=== PATIENT | female | born 1960 | race Caucasian/White ===

== ENCOUNTER → 2018-02-07 | Outpatient (CLI) | payer OTHER | LOC: M.RAD 11:43 | DX: M25.551 Pain in right hip (principal); M20.11 Hallux valgus (acquired), right foot; Z98.890 Other specified postprocedural states ==

== ENCOUNTER 2020-02-12 14:50 | Emergency (ER) | payer OTHER ==
[~2020-02-12] VITALS: Ht 160 cm; Wt 83.9 kg
[2020-02-12] MEDS ORDERED: LISINOPRIL2.5 MG PO (15:09)
[2020-02-12] MEDS ORDERED: HYDROCHLOROTHIA25 M2 PO (15:10)
[2020-02-12] MEDS ORDERED: BUSPIRONE HCL7.5 MG PO (15:10)
[2020-02-12 15:57] LABS: ABSOLUTE EOSINOPHILS 0.2 thou/uL (0.0-0.7); ABSOLUTE LYMPHOCYTES 2.6 thou/uL (0.8-5.3); ABSOLUTE MONOCYTES 0.9 thou/uL (0.0-1.2); ABSOLUTE NEUTROPHILS 6.5 thou/uL (1.6-8.1); BASOPHILS 0.4 %; EOSINOPHILS 2.1 %; HEMOGLOBIN 14.2 gm/dL (12.0-15.0); LYMPHOCYTES 25.3 %; MCHC 34.7 g/dL (28.0-37.0); MCV 89.3 fL (80.0-100.0); MPV 8.8 fl. (7.2-11.1); NUCLEATED RBCS 0 /100WBC; PLATELET COUNT* 327 thou/uL (150-400); POLYS 63.2 %; RBC 4.59 mil/uL (4.20-5.00); RDW-CV 12.5 % (10.5-14.5); WBC 10.2 thou/uL (4.0-11.0)
[2020-02-12 16:06] LABS: CALCIUM 8.7 mg/dL (8.5-10.1); CREATININE 0.8 mg/dL (0.6-1.3); POTASSIUM 3.1 mmol/L (3.5-5.1)
[2020-02-12 16:17] LABS: TOTAL BILIRUBIN 0.3 mg/dL (<0.1-1.0); TOTAL PROTEIN 7.3 g/dL (6.4-8.2)
[2020-02-12] MEDS ORDERED: ZPAK PO (17:43)
[2020-02-12] MEDS ORDERED: VENTOLIN HFA 1818 GM INH (17:44)
[2020-02-12 18:03] VITALS: BP 127/66
--- NOTE | 2020-02-13 14:31 | EKG ---
[place] [address] ELECTROCARDIOGRAM REPORT Name: TRACEE LUCAS Room: [facility]#: [id number] Admission: 02/12/20 Attend Phys: Discharge: 02/12/20 Date of : 56 Date of Service: 02/12/20 1458 Report #: [id number] THIS REPORT FOR: //name// [facility] ED Test Date: 2020-02-12 Test Time: 14:58:58 Pat Name: TRACEE LUCSA Department: Room: Gender: F Territory Sales Representative: : 1960 Requested By: Eduard Kennedy Order Number: [id number] MD: Rojas Biswas Measurements Intervals Lyons Rate: 91 P: 29 MD: 173 QRS: 12 QRSD: 90 T: 6 QT: 361 QTc: 445 Interpretive Statements Sinus rhythm Atrial premature complex Low voltage, precordial leads Baseline wander in lead(s) V3,V4 No previous ECG available for comparison Electronically Signed On 02-13-2020 14:31:15 CDT by Rojas Biswas [email or web address] <ELECTRONICALLY SIGNED> By: Rojas Biswas MD, FACC 02/13/20 1431 1458 1458 Rojas Biswas MD, [facility] /EPI
== END 2020-02-12 18:04 | disposition home or self-care (01) ==
LOC: M.ERS 14:50
PROVIDERS: Nurse Practitioner Family
DX: J18.8 Other pneumonia, unspecified organism (principal); Z20.828 Contact with and (suspected) exposure to other viral communicable diseases; Z88.0 Allergy status to penicillin

== ENCOUNTER 2020-02-20 11:00 | Emergency (ER) | payer OTHER ==
[~2020-02-20] VITALS: Ht 160 cm; Wt 83.9 kg
[~2020-02-20 11:00] MED LIST: BUSPIRONE HCL7.5 MG PO; HYDROCHLOROTHIA25 M2 PO; LISINOPRIL2.5 MG PO; VENTOLIN HFA 1818 GM INH; ZPAK PO
[2020-02-20] MEDS ORDERED: AZITHROMYCIN 2250 MG PO (14:44)
[2020-02-20] MEDS ORDERED: MEDROLDOSEPACK PO (14:44)
[2020-02-20] MEDS ORDERED: PROAIR HFA8.5 GM INH (14:46)
[2020-02-20 14:53] VITALS: BP 123/49
== END 2020-02-20 14:53 | disposition home or self-care (01) ==
LOC: M.ERS 11:00
DX: J40 Bronchitis, not specified as acute or chronic (principal); Z20.828 Contact with and (suspected) exposure to other viral communicable diseases; I10 Essential (primary) hypertension; Z88.0 Allergy status to penicillin

== ENCOUNTER 2020-02-28 16:53 | Emergency (ER) | payer OTHER ==
[~2020-02-28] VITALS: Ht 160 cm; Wt 83.0 kg
[~2020-02-28 16:53] MED LIST changes: +AZITHROMYCIN 2250 MG PO; +MEDROLDOSEPACK PO; +PROAIR HFA8.5 GM INH
[2020-02-28 17:39] LABS: ABSOLUTE BASOPHILS 0.1 thou/uL (0.0-0.2); ABSOLUTE EOSINOPHILS 0.2 thou/uL (0.0-0.7); ABSOLUTE LYMPHOCYTES 2.8 thou/uL (0.8-5.3); ABSOLUTE MONOCYTES 0.9 thou/uL (0.0-1.2); ABSOLUTE NEUTROPHILS 6.4 thou/uL (1.6-8.1); BASOPHILS 0.7 %; EOSINOPHILS 2.2 %; HEMATOCRIT 42.2 % (37.0-47.0); LYMPHOCYTES 26.8 %; MCH 31.6 pg (26.0-34.0); MCHC 35.6 g/dL (28.0-37.0); MCV 88.8 fL (80.0-100.0); MONOCYTES 8.8 %; MPV 7.8 fl. (7.2-11.1); NUCLEATED RBCS 0 /100WBC; PLATELET COUNT* 318 thou/uL (150-400); POLYS 61.5 %; RBC 4.75 mil/uL (4.20-5.00); RDW-CV 12.4 % (10.5-14.5); WBC 10.4 thou/uL (4.0-11.0)
[2020-02-28 17:54] LABS: CALCIUM 8.4 mg/dL (8.5-10.1); CREATININE 0.9 mg/dL (0.6-1.3); POTASSIUM 3.2 mmol/L (3.5-5.1)
[2020-02-28 17:59] LABS: ALBUMIN 3.7 g/dL (3.4-5.0); MAGNESIUM 1.9 mg/dL (1.8-2.4); TOTAL BILIRUBIN 0.3 mg/dL (<0.1-1.0); TOTAL PROTEIN 7.2 g/dL (6.4-8.2)
[2020-02-28] MEDS ORDERED: PREDNISONE 10 M10 MG PO (19:49)
[2020-02-28] MEDS ORDERED: DOXYCYCLINE 10100 M2 PO (19:49)
[2020-02-28 20:16] VITALS: BP 139/77
== END 2020-02-28 20:17 | disposition home or self-care (01) ==
LOC: M.ERS 16:53
PROVIDERS: Physician Assistant
DX: J18.9 Pneumonia, unspecified organism (principal); E87.6 Hypokalemia; I10 Essential (primary) hypertension; Z88.0 Allergy status to penicillin

== ENCOUNTER → 2020-04-28 | Outpatient (CLI) | payer OTHER ==
[~2020-04-28] MED LIST changes: +DOXYCYCLINE 10100 M2 PO; +PREDNISONE 10 M10 MG PO
--- NOTE | 2020-04-28 14:51 | EXE ---
[place] [address] STRESS ECHOCARDIOGRAM Name: LANCETRACEE Ash Room: [facility]#: [id number] Admission: 04/28/20 Attend Phys: Courtney Leal DO Discharge: Date of : 56 Date of Service: 04/28/20 1451 Report #: [id number] THIS REPORT FOR: cc: Courtney Leal Maggie M. DO Liston, Michael J. MD [facility] ~ APPROVED REPORT Study performed: 04/28/2020 13:23:54 Exam: Stress Echocardiogram Indication: Chest pain Patient Location: Out-Patient Stress Nurse: Ramona Gonzalez RN Supervising Physician: Rojas Biswas MD Ht: 5 ft 2 in HR: 80 bpm BP: 127/76 mmHg Medical History Cardiac Risk Factors: Age,, HTN,, Tobacco History (Former), FHX of CAD Procedure The patient underwent an Exercise Stress Test using the Antonio Protocol. Blood pressure, heart rate, and EKG were monitored. An Echocardiogram was performed by emissions testing technician in four stages in quad fashion. At peak stress, four selected images were obtained and placed side by side with resting images for comparison. Stress Test Details Stress Test: Exercise stress testing was performed using a Antonio protocol. HR Resting HR: 80 bpm Max Heart Rate (APMHR): 159 bpm Max HR Achieved: 150 bpm Target HR (85% APMHR): 135 bpm % of APMHR: 94 Recovery HR: 105 bpm HR response to stress: Normal HR response to stress BP Resting BP: 127/76 mmHg Max BP: 201/90 mmHg Recovery BP: 144/85 [place] [address] STRESS ECHOCARDIOGRAM Name: TRACEE LUCAS Room: [facility]#: [id number] Admission: 04/28/20 Attend Phys: Courtney Leal DO Discharge: Date of : 56 Date of Service: 04/28/20 1451 Report #: [id number] BP response to stress: Normal blood pressure response to stress. ECG Resting ECG: Sinus Rhythm Stress ECG: Sinus Tachycardia ST Change: None Arrhythmia: None Recovery ECG: Sinus Rhythm Recovery ST Change: None Recovery Arrhythmia: None Clinical Reason for Termination: Completed protocol Exercise duration: 6 min sec Highest Stage Achieved: Stage 2: 2.5 mph at 12% grade. Exercise capacity: 7.05 METs The patient tolerated standard Antonio protocol exercise without significant cardiac symptoms. Stress ECG Conclusion The baseline twelve-lead EKG shows sinus rhythm without significant ST segment or T wave abnormality. EKGs obtained during and post exercise show sinus rhythm and sinus tachycardia with no significant ST segment or T wave changes when compared to baseline. Pre-Stress Echo The resting Echocardiogram showed normal left ventricular contractility with an estimated Ejection Fraction of about 55-60%. The resting echocardiogram demonstrated normal wall motion in all wall segments. Post-Stress Echo The stress Echocardiogram showed normal left ventricular contractility with an estimated Ejection Fraction of about >70%. Conclusion Clinical Response: Non-ischemic Exercise Capacity: Average Stress ECG Response: Non-ischemic Stress Echo Images: [place] [address] STRESS ECHOCARDIOGRAM Name: TRACEE LUCAS Room: [facility]#: [id number] Admission: 04/28/20 Attend Phys: Courtney Leal DO Discharge: Date of : 56 Date of Service: 04/28/201450 Report #: [id number] Other Information Study Quality: Fair <ELECTRONICALLY SIGNED> By: Rojas Biswas MD, FACC 04/28/201450 50 50 Rojas Biswas MD, FACC /INF
== END ==
LOC: M.CRD 12:38
PROVIDERS: ATTEND Family Medicine
DX: I10 Essential (primary) hypertension (principal); R06.02 Shortness of breath; R07.9 Chest pain, unspecified; Z87.891 Personal history of nicotine dependence